=== PATIENT | male | born 1995 | race Caucasian/White ===

== ENCOUNTER 2023-07-27 22:22 | Emergency (ER) | payer BC ==
[~2023-07-27] VITALS: Ht 175.3 cm; Wt 88.5 kg
[2023-07-27 22:41] VITALS: BP_SYST 134; PULSE 77; RESP 18; TEMP 97.9; O2SAT 99
[2023-07-27] MEDS ORDERED: cefTRIAXone 1 GM in LIDOCAINE 1%, 20 ML MDV 2.1 ML IM ONE (23:15)
[2023-07-27] MEDS ORDERED: LEVO750T64 PO (23:35)
[2023-07-27 23:38] VITALS: BP_SYST 134; PULSE 77; RESP 18; TEMP 97.9; O2SAT 99
== END 2023-07-27 23:38 | disposition home or self-care (01) ==
LOC: SED 22:22
DX: J20.9 Acute bronchitis, unspecified (principal); R05.9 Cough, unspecified; R50.9 Fever, unspecified; Z79.899 Other long term (current) drug therapy
CPT/HCPCS: 99283; 71045; 96372; J0696; J2001